=== PATIENT | female | born 1955 | race Caucasian/White ===

== ENCOUNTER 2020-11-08 07:27 | Outpatient (RCR) | payer MEDICAID, SELFPAY ==
[2020-11-08 07:49] LABS: Abs Immature Grans 0.04 10^3/uL (0.0-0.06); Absolute Basophil Count 0.02 10^3/uL (0.0-0.2); Absolute Eosinophil Count 0.01 10^3/uL (0.0-0.7); Absolute Lymphocyte Count 1.79 10^3/uL (1.2-3.4); Absolute Monocyte Count 1.12 10^3/uL (0.1-0.8); Basophils % 0.2; Eosinophils % 0.1; HCT 41.3 % (36.0-46.0); HGB 13.8 g/dL (11.2-15.7); Immature Grans % 0.3; Lymphocytes % 14.6; MCH 32.1 pg (27.0-33.0); MCHC 33.4 % (32.0-36.0); MPV 10.8 fL (8.0-11.0); Monocytes % 9.1; Neutrophils % 75.7; Nucleated RBC 0 %; Platelet Count 282 10^3/uL (130-400); RDW 11.7 % (11.7-14.6); RDW-SD 41.1 fL; WBC 12.28 10^3/uL (4.4-10.8)
[2020-11-08] MEDS: Normal Saline Flush 10 ML SYR IVP (07:54)
[2020-11-08 08:02] LABS: ALT 20 U/L (14-59); AST 21 U/L (15-37); Albumin 3.9 g/dL (3.4-5.0); Alkaline Phosphatase 108 U/L (46-116); BUN 16 mg/dL (7-18); Bilirubin, Total 0.4 mg/dL (0.2-1.0); CREATININE 1.27 mg/dL (0.55-1.02); Calcium 9.8 mg/dL (8.5-10.1); Chloride 100 mmol/L (98-107); Estimated GFR 42.36 (mL/min/1.73m2); Glucose 96 mg/dL (74-106); Potassium 3.9 mmol/L (3.5-5.1); Sodium 136 mmol/L (136-145); Total Protein 8.5 g/dL (6.4-8.2)
[2020-11-09 09:52] LABS: CA 125 74 U/mL (<30)
== END 2020-11-10 23:59 | disposition home or self-care (01) ==
LOC: INF 07:27
PROVIDERS: PCP Internal Medicine; Visit Provider Internal Medicine
DX: C56.9 Malignant neoplasm of unspecified ovary (principal); C77.2 Secondary and unspecified malignant neoplasm of intra-abdominal lymph nodes; Z45.2 Encounter for adjustment and management of vascular access device
CPT/HCPCS: 36591; 80053; 86304; 85025

== ENCOUNTER 2020-11-29 11:11 | Outpatient (REF) | payer MEDICAID, SELFPAY ==
[2020-11-29 11:25] LABS: Abs Immature Grans 0.13 10^3/uL (0.0-0.06); Absolute Basophil Count 0.04 10^3/uL (0.0-0.2); Absolute Eosinophil Count 0.01 10^3/uL (0.0-0.7); Absolute Lymphocyte Count 1.75 10^3/uL (1.2-3.4); Absolute Monocyte Count 1.08 10^3/uL (0.1-0.8); Absolute Neutrophil Count 6.74 10^3/uL (1.2-6.7); Basophils % 0.4; Eosinophils % 0.1; HCT 32.3 % (36.0-46.0); HGB 10.7 g/dL (11.2-15.7); Immature Grans % 1.3; Lymphocytes % 17.9; MCH 32.2 pg (27.0-33.0); MCHC 33.1 % (32.0-36.0); MCV 97.3 fL (80-95); MPV 10.5 fL (8.0-11.0); Monocytes % 11.1; Neutrophils % 69.2; Nucleated RBC 0 %; Platelet Count 230 10^3/uL (130-400); RBC 3.32 10^6/uL (3.93-5.22); RDW 12.2 % (11.7-14.6); RDW-SD 42.2 fL; WBC 9.75 10^3/uL (4.4-10.8)
[2020-11-29 11:44] LABS: ALT 38 U/L (14-59); AST 27 U/L (15-37); Albumin 3.5 g/dL (3.4-5.0); Alkaline Phosphatase 147 U/L (46-116); Anion Gap 6.3 mmol/L (3-11); BUN 14 mg/dL (7-18); Bilirubin, Total 0.1 mg/dL (0.2-1.0); CO2 27.7 mmol/L (21.0-32.0); CREATININE 1.11 mg/dL (0.55-1.02); Calcium 8.9 mg/dL (8.5-10.1); Chloride 104 mmol/L (98-107); Estimated GFR 49.49 (mL/min/1.73m2); Glucose 99 mg/dL (74-106); Sodium 138 mmol/L (136-145); Total Protein 7.8 g/dL (6.4-8.2)
== END 2020-11-29 11:31 ==
LOC: LBN 11:11
PROVIDERS: PCP Internal Medicine; Visit Provider Internal Medicine
DX: C56.9 Malignant neoplasm of unspecified ovary (principal); C77.2 Secondary and unspecified malignant neoplasm of intra-abdominal lymph nodes
CPT/HCPCS: 80053; 85025

== ENCOUNTER → 2022-03-14 00:41 | Outpatient (CLI) | payer MEDICARE, OTHER, MEDICAID, SELFPAY ==
--- NOTE | 2022-03-14 | DI.US_ITS ---
Exam(s) US LOWER EXTREMITY VENOUS LT EXAM: US LOWER EXTREMITY VENOUS LT CLINICAL HISTORY: LT LEG SWELLING,M79.89,OVARIAN CA,C56.9,C77.2,? THOMBOSIS LT COMMON FEMORAL. TECHNIQUE: Lower extremity venous ultrasound performed using grayscale, color-flow, and spectral Do ppler analysis. COMPARISON: CT CT CHEST/ABD/PELVIS W/CONTRAST from 02/21/2022 FINDINGS: The common femoral, femoral and popliteal veins demonstrate normal compressibility, augmentation, and color Doppler. The posterior tibial veins are patent. No saphenous vein thrombosis or other superfi cial venous thrombosis is seen. No hematoma or Dill's cyst is seen. IMPRESSION: Negative lower extremity ultrasound. No evidence of DVT. DATA REPOSITORY:
== END ==
PROVIDERS: PCP Internal Medicine; Visit Provider Internal Medicine
DX: M79.89 Other specified soft tissue disorders (principal); C77.2 Secondary and unspecified malignant neoplasm of intra-abdominal lymph nodes; Z85.43 Personal history of malignant neoplasm of ovary
CPT/HCPCS: 93971